=== PATIENT | female | born 1995 | race Caucasian/White ===

== ENCOUNTER 2017-06-28 21:11 | Emergency (ER) | payer OTHER ==
--- NOTE | 2017-06-28 21:36 | CPEKG ---
Heart Rate: 126 RR Interval: 476 P-R Interval: 103 QRSD Interval: 102 QT Interval: 328 QTC Interval: 475 P [place]: 71 QRS [place]: 50 T Wave [place]: -13 EKG Severity - ABNORMAL ECG - EKG Impression: SINUS TACHYCARDIA EKG Impression: VENTRICULAR PREMATURE COMPLEX EKG Impression: INFERIOR Q WAVES, PROBABLY NORMAL VARIATION Electronically Signed By: Tatyana Jensen 29-Jun-2017 23:08:06
[2017-06-28] MEDS ORDERED: NS 1,000 ML IV ONE ×2 (21:37→22:28)
[2017-06-28] MEDS ORDERED: LORazepam 2 MG/ML INJ IVP ONE (21:37)
--- NOTE | 2017-06-28 21:38 | EDPHY ---
HPI/HX/ROS/PE/MDM - Data Points Imaging: I viewed and interpreted images myself Narrative: CHIEF COMPLAINT: Difficulty breathing after consuming marijuana edible HPI: The patient is a 22 y/o female complaining of difficulty breathing onset 30 minutes ago while lying in bed. She consumed a marijuana edible about 20 minutes prior to symptom onset. She then began to feel anxious and developed pressure in her throat and felt like she was having difficulty breathing. She denies chest pain. She is normally healthy. She is currently on her menstrual period. She reports she has consumed marijuana edibles frequently in the past without side effects and does not think that is related to her symptoms tonight. REVIEW OF SYSTEMS: Aside from elements discussed in the HPI, a comprehensive 10-point review of systems was reviewed and is negative. PMH: Denies SOCIAL HISTORY: Has boyfriend. Uses marijuana edibles frequently. PHYSICAL EXAM: General:Patient is alert, in no acute distress. ENT:Eyes are normal to inspection. ENT inspection normal. Neck: Normal inspection. Full range of motion. Respiratory:No respiratory distress. Breath sounds normal bilaterally. Cardiovascular: Tachycardic regular rate and rhythm. Strong peripheral pulses. Normal cap refill. Abdomen:The abdomen is nontender to palpation. There are no peritoneal signs. Back: Normal to inspection. No tenderness to palpation. Skin: Normal color. No rash. Warm and dry. Extremities: Normal appearance. Full range of motion. Neuro: Oriented x3. Normal motor function. Normal sensory function. Intermittently shaking extremities. ([place]) ED Course: This is a 22 y/o female who presents with a 30-minute history of anxiety, tachycardiac, and the sensation of shortness of breath that began shortly after consuming a marijuana edible. She appears anxious, is shaking her extremities intermittently on exam, and is tachycardic around 120. Her exam is otherwise normal. Plan for IV, labs, EKG, chest x-ray, and 1mg IV Ativan. 1L IV NS administered. The 12 lead EKG was interpreted by myself. Sinus tachycardia. See hard copy and/ or "tracemaster" electronic copy for interpretation. Normal chest x-ray. Labs are unremarkable. Second liter of NS administered for tachycardia. On re-evaluation at 2250, patient feels much better. HR down to 100. ([place]) 11:56 p.m.- I received sign-out on this patient from Dr. Leblanc at approximately 11:00 p.m.. The patient continues to feel improved and now says she feels mostly tired. Heart rate at rest is about 80-85. Labs were reviewed and were unremarkable. She does feel tired but is well enough to go home. She is here with sober friends who can take her. She will be discharged. (Tatyana Jensen) MDM: This is a young healthy female who presents with anxiety, shaking, shortness of breath and tachycardia in the setting of eating an edible marijuana gummy. We performed an extensive workup including troponin, d-dimer, CXR which are normal. EKG reveals sinus tachycardia. I see no evidence of arrhythmia, PE or ACS. Given negative testing, I suspect marijuana ingestion is likely etiology. I have signed patient out to Dr. Jensen at 11pm pending re-evaluation. ( [place]) - Data Points Imaging Results: Imaging Impressions Chest X-Ray 06/28/17 21:37 Impression: No significant radiographic abnormality. Specifically, a source for chest pain is not identified. Laboratory Results: Laboratory Results 06/28/17 21:41 06/28/17 21:41 06/28/17 06/28/17 06/28/17 21:41 21:41 21:41 WBC RBC Hgb Hct MCV MCH MCHC RDW Plt Count MPV Neut % (Auto) Lymph % (Auto) [place] % (Auto) Eos % (Auto) Baso % (Auto) Nucleat RBC Rel Count Absolute Neuts (auto) Absolute Lymphs (auto) Absolute Monos (auto) Absolute Eos (auto) Absolute Basos (auto) Absolute Nucleated RBC Immature Gran % Immature Gran # D-Dimer < 0.27 ug/mLFEU ug/mLFEU (0.00-0.50) Sodium 142 mEq/L mEq/L (134-144) Potassium 4.1 mEq/L mEq/L (3.5-5.2) Chloride 106 mEq/L mEq/L (97-110) Carbon Dioxide 25 mEq/l mEq/l (22-31) Anion Gap 11 mEq/L mEq/L (8-16) BUN 14 mg/dL mg/dL (7-23) Creatinine 0.9 mg/dL mg/dL (0.6-1.0) Estimated GFR > 60 Glucose 96 mg/dL mg/dL (70-100) Calcium 9.9 mg/dL mg/dL (8.5-10.4) Troponin I < 0.012 ng/mL ng/mL (0.000-0.034) Beta HCG, Qual NEGATIVE 06/28/17 21:41 WBC 10.31 10^3/uL H 10^3/uL (3.80-9.50) RBC 4.63 10^6/uL 10^6/uL (4.18-5.33) Hgb 14.3 g/dL g/dL (12.6-16.3) Hct 40.8 % % (38.0-47.0) MCV 88.1 fL fL (81.5-99.8) MCH 30.9 pg pg (27.9-34.1) MCHC 35.0 g/dL g/dL (32.4-36.7) RDW 11.7 % % (11.5-15.2) Plt Count 239 10^3/uL 10^3/uL (150-400) MPV 9.6 fL fL (8.7-11.7) Neut % (Auto) 59.8 % % (39.3-74.2) Lymph % (Auto) 30.4 % % (15.0-45.0) [place] % (Auto) 7.5 % % (4.5-13.0) Eos % (Auto) 1.6 % % (0.6-7.6) Baso % (Auto) 0.3 % % (0.3-1.7) Nucleat RBC Rel Count 0.0 % % (0.0-0.2) Absolute Neuts (auto) 6.18 10^3/uL 10^3/uL (1.70-6.50) Absolute Lymphs (auto) 3.13 10^3/uL H 10^3/uL (1.00-3.00) Absolute Monos (auto) 0.77 10^3/uL 10^3/uL (0.30-0.80) Absolute Eos (auto) 0.16 10^3/uL 10^3/uL (0.03-0.40) Absolute Basos (auto) 0.03 10^3/uL 10^3/uL (0.02-0.10) Absolute Nucleated RBC 0.00 10^3/uL 10^3/uL (0-0.01) Immature Gran % 0.4 % % (0.0-1.1) Immature Gran # 0.04 10^3/uL 10^3/uL (0.00-0.10) D-Dimer Sodium Potassium Chloride Carbon Dioxide Anion Gap BUN Creatinine Estimated GFR Glucose Calcium Troponin I Beta HCG, Qual Medications Given: Discontinued Medications Sodium Chloride (Ns) 1,000 mls @ 0 mls/hr IV EDNOW ONE; Wide Open PRN Reason: Protocol Stop: 06/28/17 21:38 Last Admin: 06/28/17 21:46 Dose: 1,000 mls Sodium Chloride (Ns) 1,000 mls @ 0 mls/hr IV EDNOW ONE; Wide Open PRN Reason: Protocol Stop: 06/28/17 22:29 Last Admin: 06/28/17 22:30 Dose: 1,000 mls Lorazepam (Ativan Injection) 1 mg IVP EDNOW ONE Stop: 06/28/17 21:38 Last Admin: 06/28/17 21:47 Dose: 1 mg General Time Seen by Provider: 06/28/17 21:34 Initial Vital Signs: Initial Vital Signs Temperature (C) 36.8 C 06/28/17 21:12 Heart Rate 140 H 06/28/17 21:12 Respiratory Rate 26 H 06/28/17 21:12 Blood Pressure 115/70 06/28/17 21:12 O2 Sat (%) 99 06/28/17 21:12 O2 Delivery Mode Room Air Allergies/Adverse Reactions: No Known Allergies Allergy (Unverified 06/28/17 21:11) Home Medications: Medication Instructions Recorded NK [No Known Home Meds] 06/28/17 Departure - Departure Disposition: Home, Routine, Self-Care Clinical Impression: Shortness of breath, Marijuana use Condition: Good Instructions: Dyspnea (ED) Additional Instructions: Avoid abuse of marijuana. Follow up with your primary care provider for unimproved symptoms over the next 1-2 days. Return to the ED for worsening of condition. Referrals: [facility],. [Clinic] - As per Instructions Report Scribed for: [place] Report Scribed by: Gina Rucker Date of Report: 06/28/17 Time of Report: 21:38 Physician Review and Approval Statement: Portions of this note were transcribed by an ED scribe. I personally performed the history, physical exam, and medical decision making; and confirm the accuracy of the information in the transcribed note.
[2017-06-28 21:49] LABS: % IMMATURE GRANULYOCYTES 0.4 % (0.0-1.1); ABSOLUTE IMMATURE GRANULOCYTES 0.04 10^3/uL (0.00-0.10); ADD DIFF? NO; ADD MORPH? NO; ADD SCAN? NO; ATYPICAL LYMPHOCYTE FLAG 10 (0-99); FRAGMENT RBC FLAG 0 (0-99); HEMATOCRIT 40.8 % (38.0-47.0); HEMOGLOBIN 14.3 g/dL (12.6-16.3); LEFT SHIFT FLG 0 (0-99); LIPEMIA HEMOLYSIS FLAG 90 (0-99); MEAN CELL HEMOGLOBIN 30.9 pg (27.9-34.1); MEAN CELL VOLUME 88.1 fL (81.5-99.8); MEAN PLATELET VOLUME 9.6 fL (8.7-11.7); PLATELET CLUMPS FLAG 10 (0-99); PLATELET COUNT 239 10^3/uL (150-400); RED BLOOD CELL COUNT 4.63 10^6/uL (4.18-5.33); RED CELL DISTRIBUTION WIDTH 11.7 % (11.5-15.2)
[2017-06-28 22:08] LABS: ANION GAP 11 mEq/L (8-16); CALCIUM 9.9 mg/dL (8.5-10.4); CARBON DIOXIDE 25 mEq/l (22-31); CHLORIDE 106 mEq/L (97-110); CREATININE 0.9 mg/dL (0.6-1.0); GLOMERULAR FILTRATION RATE > 60; GLUCOSE 96 mg/dL (70-100); POTASSIUM 4.1 mEq/L (3.5-5.2); SODIUM 142 mEq/L (134-144)
[2017-06-28 22:18] LABS: TROPONIN I < 0.012 ng/mL (0.000-0.034)
--- NOTE | 2017-06-28 22:23 | CPEKG ---
Heart Rate: 102 RR Interval: 588 P-R Interval: 136 QRSD Interval: 90 QT Interval: 340 QTC Interval: 443 P [place]: 68 QRS [place]: 45 T Wave [place]: 31 EKG Severity - OTHERWISE NORMAL ECG - EKG Impression: SINUS TACHYCARDIA Electronically Signed By: Tatyana Jensen 29-Jun-2017 23:07:48
[2017-06-29 00:21] VITALS: BP 133/88; PULSE 94; RESP 18; TEMP 99.3; O2SAT 96
== END 2017-06-29 00:19 | disposition home or self-care (01) ==
DX: R06.02 Shortness of breath (principal); F12.90 Cannabis use, unspecified, uncomplicated; E86.9 Volume depletion, unspecified
CPT/HCPCS: 96374; J2060

== ENCOUNTER 2017-11-12 23:50 | Emergency (ER) | payer OTHER ==
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
[2017-11-13] MEDS ORDERED: ONDANSETRON 4 MG/2 ML VIAL IVP ONE (00:40)
[2017-11-13 04:14] VITALS: BP 106/61
== END 2017-11-13 04:25 | disposition home or self-care (01) ==
LOC: EDUNIT#
DX: F10.920 Alcohol use, unspecified with intoxication, uncomplicated (principal)
CPT/HCPCS: G0480; J2405

== ENCOUNTER 2018-04-02 01:42 | Emergency (ER) | payer OTHER ==
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
[2018-04-02 06:27] VITALS: BP 127/81
== END 2018-04-02 06:36 | disposition home or self-care (01) ==
LOC: EDUNIT#
DX: F10.929 Alcohol use, unspecified with intoxication, unspecified (principal)